=== PATIENT | male | born 1970 | race Caucasian/White ===

== ENCOUNTER 2023-11-16 14:51 | Outpatient (REF) | payer OTHER, SELFPAY ==
[2023-11-16 15:46] LABS: Basophils Percent Auto 1.3 % (0.0-3.0); Eosinophils Percent Auto 4.5 % (0.0-7.0); Hematocrit 35.1 % (37.0-53.0); Immature Granulocytes Pct Auto 0.6 %; Lymphocytes Percent Auto 3.2 % (20-44); Mean Corpuscular HGB Conc 31 gm/dL (32-36); Mean Corpuscular Hemoglobin 29 pg (26-34); Mean Corpuscular Volume 94 fL (80-100); Monocytes Percent Auto 12.2 % (0.0-11.0); Neutrophils Percent Auto 78.2 % (42.0-72.0); Platelet Count* 392 K/uL (140-440); RDW Coefficient of Variation % 15.8 % (11.5-15.5); Red Blood Count 3.75 m/uL (4.30-5.90); Slide Review Reflex No; White Blood Count* 3.12 K/uL (4.50-11.00)
[2023-11-16 16:24] LABS: Chloride* 102 mmol/L (96-114); Potassium* 4.7 mmol/L (3.6-5.1); Sodium* 136 mmol/L (135-149)
[2023-11-16 16:27] LABS: Anion Gap 8 mEq/L (7-15); Carbon Dioxide* 26 mmol/L (20-32); Creatinine* 1.3 mg/dL (0.5-1.5); Estimated Glomerular Filt Rate 65 ml/min
[2023-11-16 16:28] LABS: Blood Urea Nitrogen* 25 mg/dL (7-30); Calcium* 9.8 mg/dL (8.4-10.6); Glucose* 104 mg/dL (60-115); Magnesium* 1.8 mg/dL (1.5-2.6); Phosphorus* 3.8 mg/dL (2.5-4.5)
[2023-11-19 12:33] LABS: Tacrolimus by HPLC-MS/MS 8.1 ng/mL
[2023-11-21 09:03] LABS: Mycophenolic Acid Glucuronide 51.9 ug/mL (35.0-100.0)
== END 2023-11-16 14:52 | disposition home or self-care (01) ==
LOC: NPINS 14:51
PROVIDERS: Visit Provider Nurse Practitioner
DX: Z94.0 Kidney transplant status (principal); Z79.899 Other long term (current) drug therapy; D84.821 Immunodeficiency due to drugs
CPT/HCPCS: 80048; 80180; 80197; 83735; 84100; 85025